=== PATIENT | male | born 1990 | race Caucasian/White ===

== ENCOUNTER 2022-04-21 00:05 | Observation (INO) | payer SELFPAY ==
[2022-04-21] VITALS: BP 120/77; PULSE 71; RESP 8; TEMP 36.5; O2SAT 98
--- NOTE | 2022-04-21 | RT.EKG_ITS ---
APPROVED REPORT Exam: Resting ECG Reason for Exam: overdose Patient Location: E HR:68 bpm ECG Measurements Heart Rate 68 AXIS [place] 161 P 71 QRSd 102 QRS 73 QT 392 T 33 QTc 418 Conclusion Sinus rhythm...normal P axis, V-rate 60- 99 ST elev, probable normal early repol pattern...ST elevation, age<55 Physician: no stemi, repol present, no st depression, intervals stable
[2022-04-21] MEDS: Normal Saline 1,000 ML 1000 ML IV ×2 (00:12→01:35)
[2022-04-21 00:20] LABS: Abs Immature Grans 0.02 10^3/uL (0.0-0.06); Absolute Basophil Count 0.05 10^3/uL (0.0-0.2); Absolute Lymphocyte Count 1.85 10^3/uL (1.2-3.4); Absolute Monocyte Count 0.56 10^3/uL (0.1-0.8); Absolute Neutrophil Count 6.01 10^3/uL (1.2-6.7); Basophils % 0.6; Eosinophils % 1.2; HCT 43.6 % (40.0-50.0); HGB 14.7 g/dL (13.5-17.5); Immature Grans % 0.2; Lymphocytes % 21.5; MCH 29.6 pg (27.0-33.0); MCHC 33.7 % (32.0-36.0); MCV 88 fL (80-95); MPV 11.6 fL (8.0-11.0); Monocytes % 6.5; Platelet Count 158 10^3/uL (130-400); RBC 4.96 10^6/uL (4.36-5.78); RDW 12.4 % (11.8-14.1); RDW-SD 39.8 fL; WBC 8.59 10^3/uL (4.4-10.8)
[2022-04-21 00:33] LABS: Acetaminophen 48 ug/mL (10-30)
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
[2022-04-21 00:37] LABS: Salicylate < 2.8 mg/dL (<2.8)
[2022-04-21 00:49] LABS: ALT 51 U/L (16-63); AST 70 U/L (15-37); Albumin 4.2 g/dL (3.4-5.0); Alkaline Phosphatase 65 U/L (46-116); Anion Gap 11.3 mmol/L (3-11); BUN 22 mg/dL (7-18); Bilirubin, Total 0.7 mg/dL (0.2-1.0); CO2 24.7 mmol/L (21.0-32.0); CREATININE 1.3 mg/dL (0.70-1.30); Calcium 9.5 mg/dL (8.5-10.1); Chloride 107 mmol/L (98-107); ETHANOL BLOOD 141.5 mg/dL (<10); Glucose 82 mg/dL (74-106); Magnesium 2.1 mg/dL (1.8-2.4); Sodium 143 mmol/L (136-145); Total Protein 7.2 g/dL (6.4-8.2); Troponin I < 50 ng/L (<or=60)
[2022-04-21 00:59] LABS: Creatine Kinase 1631 U/L (39-308)
[2022-04-21 01:01] LABS: Source Nasopharynx
[2022-04-21 01:50] LABS: COVID-19 PCR Negative (Negative)
[2022-04-21] MEDS: LORazepam 2 MG/ML VIAL 1 MG IVP (02:14)
[2022-04-21] MEDS: diazePAM 10 MG/2 ML SYR 5 MG IVP (02:40)
[2022-04-21 03:06] LABS: *AMPHETAMINES SCREEN URINE Negative (Negative); *BARBITURATES SCREEN URINE Negative (Negative); *BENZODIAZEPINES SCREEN URINE Negative (Negative); Cannabinoids THC Negative (Negative); Cocaine Screen,Urine Negative (Negative); METHADONE URINE SCREEN Negative (Negative); OPIATES URINE SCREEN Negative (Negative)
[2022-04-21 03:08] LABS: Acetaminophen 34 ug/mL (10-30)
--- NOTE | 2022-04-21 03:17 | NUR.NOTE ---
At approximately 0200 patient stated he wanted to go outside and smoke. This request was denied, but a nicotine patch was offered, which he denied. At this point, he threatened to leave AMA. The ramifications of leaving AMA were discussed with the patient, and Dr. Thompson was included in the discussion. Patient acquiesced and transfer to the floor was continued. When the patient became aware that his fiancee would be unable to spend the night with him, he removed his gown and dressed and said he was leaving as soon as he got his Valium. Again, discussion was had with the patient, and it was made clear to him that he would not be receiving Valium at this time. His fiancee encouraged him to stay the night, and this RN explained that visiting hours commenced at 7am, so it was only 4 hours that he would not be with her. He elicited a promise from her that she would arrive promptly at 0700, and settled back onto the stretcher for transport to the Unit. Patient was transferred to the Unit at 0310.
[2022-04-21 03:19] LABS: Tricyclic Antidepressants Negative (Negative)
--- NOTE | 2022-04-21 04:30 | NUR.NOTE ---
Nursing Note: Received report from SHYAM Cunha from ER at [place] 0250am 04/21/22. In a report, COLORER H[employer]ES AND SKINS stated that pt overdosed on tylenol, statins. He also had drunk [place] intentionally due to recent stress in his life. Pt received 2L of NS, Ativan, Valium before arriving to the ICU. Pt was coming to ICU as M/S Overflow status for rehydration and general observation per ED report. In report, RN mentions that pt verbalized his wish to leave several times, but medical and nursing team was able to convince him to stay and receive care he needs for overdose. An involuntary hold was not initiated at any point by any provider from ER or ICU. No behavioral care plan was initiated for patient and therefore was a voluntary admission. at 0310 pt arrived to the unit via stretcher, accompanied by RN and Lynette. Pt appeared calm, alert & oriented and stable. This RN assessed pt's mental state and pt stated that he has no suicidal ideations, harmful thoughts to himself and others. Lynette told pt she will be back at 0700, so he can relax until then and stay here. Right after pt's fiance leaves, pt become more and more restless and expresses his strong desire to leave or to receive some sort of additional dose of medicine to help him sleep. This RN called hospitalist Dr. Pearce to convey this statement. said that pt cannot receive anything like what he was given in ER, on demand. Pt is here for overdose treatment. While this RN was on the phone, pt started getting dressed and getting ready to leave. This RN attempted to convince pt to stay, explained the health risks he takes on if he decides to leave. Meanwhile, second RN called Inventory Control Associate Anayeli to clarify if pt is OK to leave with AMA papers signed. Inventory Control Associate confirmed that it was OK. RNs got the AMA paperwork, asked Pt again if he is having any bad / disturbing thoughts. Pt stated relatively calmly that he thinks he would feel more comfortable and safer at home with his fiance rather than in the hospital and he is good. Pt signed the paper, IV was taken out, and security was called and pt was escorted out at 03:30am. Seconds later, Dr. Pearce calls ICU unit and says that Pt is to be returned to the unit because pt was supposed to be on involuntary stay and can't leave due to not being medically cleared. He also stated to call State Police. This RN immediately called court supervisor for clarification and guidance on this matter. Inventory Control Associate called Dr. Veronica, medical imaging technician, to make him aware and to connect him to this RN. This RN explained everything that had happened: There was no involuntary hold on this pt; there was no order to have him with a sitter, to have any suicidal precautions in place by any physician and by ER nursing staff. Dr. Veronica asked questions about pt being safe for himself and others; pt's mental state and behavior. Also, Dr. Veronica, stated that it's court supervisor's responsibility to call police and assist, not staff nurse. He advised to document everything very detailed. RN didn't call state police due to previous conversation with the medical imaging technician. This RN called court supervisor again to get an update from her side. She stated that ER MD called State Police to have pt be brought back to ER and initiate Involuntary Hold.
--- NOTE | 2022-04-21 14:41 | W.PM.PROGNOT ---
Date of Service Date of service: 04/21/22 Time of Service: 04:10 Assessment and Plan Assessment and plan (1) Suicidal ideation: Status: Acute Assessment and plan: Overdose of medications with patient not appearing to have good knowledge of possible side effects but does need psychiatric evaluation once sober. (2) Medication overdose: Status: Acute Assessment and plan: Significant amount of statin which would be monitored and patient at risk for leaving AMA. (3) Intentional acetaminophen overdose: Status: Acute Assessment and plan: About 7 g not requiring treatment. (4) Elevated ETOH level: Status: Acute Assessment and plan: Inebriated during his evaluation in the hospital. (5) Acute dehydration: Status: Acute Assessment and plan: Patient did receive hydration but needed further hydration before leaving AMA. Subjective Subjective Interval history since last seen: This is a 31-year-old male patient recently moved up to [place] who was hiking drink alcohol heavily and afterwards had suicidal ideation and took a significant amount of acetaminophen which was not dangerous and did not require treatment as well as a large amount of a statin which would require monitoring along with alcohol withdrawal monitoring if the patient was to withdrawal. The ED physician reported that he did not usually drink alcohol and this was less of a problem. The patient did have suicidal thoughts enough to take the medications. He threatened to leave AMA from the ED but was temporized by being given benzodiazepines and immediately went in the ICU demanded to have more benzodiazepines or he would leave AMA. Before discussion with the ED physician and nurse could take place or for me to come into the hospital to see the patient from 5 minutes away the patient left AMA. He was involuntary at that time and we could not keep him from leaving but the ED physician felt it important that he be brought back to the ED for possible involuntary treatment. This was ongoing. Patient was never seen by the admitting physician because of his behavior and it appeared he was very uncooperative even in the ED. He has high risk and should be evaluated for possible involuntary admission for treatment for substance abuse and for suicidal ideation. Objective Last Vital Signs Temp 36.5 C 04/21/22 00:00 Pulse 71 04/21/22 00:00 Resp 8 L 04/21/22 00:00 BP 120/77 04/21/22 00:00 Pulse Ox 98 04/21/22 00:00 Laboratory Results - last 24 hr 04/21/22 04/21/22 04/21/22 00:10 00:10 00:10 WBC 8.59 RBC 4.96 Hgb 14.7 Hct 43.6 MCV 88 MCH 29.6 MCHC 33.7 RDW 12.4 Plt Count 158 MPV 11.6 H Immature Gran % 0.2 Neutrophils % 70.0 Lymphocytes % 21.5 Monocytes % 6.5 Eosinophils % 1.2 Basophils % 0.6 Nucleated RBC % 0.0 Absolute Neutrophils 6.01 Absolute Lymphocytes 1.85 Absolute Monocytes 0.56 Absolute Eosinophils 0.10 Absolute Basophils 0.05 Sodium 143 Potassium 4.0 Chloride 107 Carbon Dioxide 24.7 Anion Gap 11.3 H BUN 22 H Creatinine 1.3 Estimated GFR/1.73 m2 >= 60.00 Glucose 82 Calcium 9.5 Magnesium 2.1 Total Bilirubin 0.7 AST 70 H ALT 51 Alkaline Phosphatase 65 Creatine Kinase Troponin I < 50 Total Protein 7.2 Albumin 4.2 Salicylates < 2.8 Urine Opiates Screen Urine Methadone Screen Acetaminophen 48 H Ur Barbiturates Screen Ur Tricyclics Screen Ur Amphetamines Screen U Benzodiazepines Scrn Urine Cocaine Screen Ur THC Screen Ethyl Alcohol 141.5 H COVID-19 Source SARS-CoV-2 (PCR) 04/21/22 04/21/22 04/21/22 00:10 01:00 02:40 WBC RBC Hgb Hct MCV MCH MCHC RDW Plt Count MPV Immature Gran % Neutrophils % Lymphocytes % Monocytes % Eosinophils % Basophils % Nucleated RBC % Absolute Neutrophils Absolute Lymphocytes Absolute Monocytes Absolute Eosinophils Absolute Basophils Sodium Potassium Chloride Carbon Dioxide Anion Gap BUN Creatinine Estimated GFR/1.73 m2 Glucose Calcium Magnesium Total Bilirubin AST ALT Alkaline Phosphatase Creatine Kinase 1631 H Troponin I Total Protein Albumin Salicylates Urine Opiates Screen Negative Urine Methadone Screen Negative Acetaminophen Ur Barbiturates Screen Negative Ur Tricyclics Screen Negative Ur Amphetamines Screen Negative U Benzodiazepines Scrn Negative Urine Cocaine Screen Negative Ur THC Screen Negative Ethyl Alcohol COVID-19 Source Nasopharynx SARS-CoV-2 (PCR) Negative 04/21/22 02:45 WBC RBC Hgb Hct MCV MCH MCHC RDW Plt Count MPV Immature Gran % Neutrophils % Lymphocytes % Monocytes % Eosinophils % Basophils % Nucleated RBC % Absolute Neutrophils Absolute Lymphocytes Absolute Monocytes Absolute Eosinophils Absolute Basophils Sodium Potassium Chloride Carbon Dioxide Anion Gap BUN Creatinine Estimated GFR/1.73 m2 Glucose Calcium Magnesium Total Bilirubin AST ALT Alkaline Phosphatase Creatine Kinase Troponin I Total Protein Albumin Salicylates Urine Opiates Screen Urine Methadone Screen Acetaminophen 34 H Ur Barbiturates Screen Ur Tricyclics Screen Ur Amphetamines Screen U Benzodiazepines Scrn Urine Cocaine Screen Ur THC Screen Ethyl Alcohol COVID-19 Source SARS-CoV-2 (PCR) PAWSS Have you Been Recently Intoxicated or Drunk Within the Last 30 days?: No Have you Ever Experienced Previous Episodes of Alcohol Withdrawal?: No Have you ever Experienced Withdrawal Seizures?: No Have you ever Experienced Delirium Tremens(DT)s?: No Have you ever undergone Alcohol Rehabilitation Treatment (i.e, inpt ot outpatient treatment programs)?: No Have you ever Experienced Blackouts?: No Have you ever Combined Alcohol with other Downers within the last 90 days?: No Have you ever Combined Alcohol with any other Substance of Abuse during the last 90 days?: Yes Positive Blood Alcohol level on Presentation? [PCS.BAL]: Unable to Obtain Evidence of Increased Autonomic Activity (i.e. HR>120, tremor, sweating, agitation, nausea)?: No Result: 2
== END 2022-04-21 03:30 | disposition left against medical advice (07) ==
LOC: ER 02:14 → ICU 02:59
PROVIDERS: Admitting Provider Family Medicine; Emergency Provider Student in an Organized Health Care Education/Training Program; Visit Provider Family Medicine
DX: T39.1X2A Poisoning by 4-Aminophenol derivatives, intentional self-harm, initial encounter (principal); R45.851 Suicidal ideations; T46.6X2A Poisoning by antihyperlipidemic and antiarteriosclerotic drugs, intentional self-harm, initial encounter; F10.129 Alcohol abuse with intoxication, unspecified; Y90.6 Blood alcohol level of 120-199 mg/100 ml; E86.0 Dehydration; F17.210 Nicotine dependence, cigarettes, uncomplicated; Z20.822 Contact with and (suspected) exposure to COVID-19
CPT/HCPCS: 80053; 80307; 82550; 87635; 93005; 96361; 96374; 96375; 99284; 99285; 80320; 80329; 83735; 84484; 85025; 93010; G0378; J2060; J3360; J3490